=== PATIENT | female | born 1960 | race Hispanic/Latino ===

== ENCOUNTER 2017-12-09 07:14 | Emergency (ER) | payer OTHER ==
[2017-12-09 07:18] VITALS: O2SAT 97
--- NOTE | 2017-12-09 08:15 | C.PDOC ---
History Of Present Illness 57 y/o female presents to ED for cough, cold and congestion for the past week. Also complains of pressure in her sinuses. Notes taking Mucinex and Afrin spray without relief. Denies fever or other complaints. Time Seen by Provider: 12/09/17 07:21 Chief Complaint (Nursing): Cough, Cold, Congestion History Per: Patient History/Exam Limitations: no limitations Location Of Pain: Throat, Sinus/es Associated Symptoms: Sore Throat, Cough, Sinus Drainage Recent travel outside of the [place]: No Past Medical History Reviewed: Historical Data, Nursing Documentation, Vital Signs Vital Signs: Last Vital Signs Temp 98.4 F 12/09/17 08:25 Pulse 78 12/09/17 08:25 Resp 18 12/09/17 08:25 BP 125/88 12/09/17 08:25 Pulse Ox 97 12/09/17 08:52 - Medical History PMH: No Chronic Diseases Surgical History: No Surg Hx Family History: States: Unknown Family Hx - Social History Hx Alcohol Use: No Hx Substance Use: No - Immunization History Hx Tetanus Toxoid Vaccination: No Hx Influenza Vaccination: No Hx Pneumococcal Vaccination: No Review Of Systems Except As Marked, All Systems Reviewed And Found Negative. Constitutional: Negative for: Fever, Chills ENT: Positive for: Nose Discharge, Nose Congestion Cardiovascular: Negative for: Chest Pain Respiratory: Positive for: Cough. Negative for: Shortness of Breath Physical Exam - Physical Exam Appears: Non-toxic, No Acute Distress Skin: Normal Color, Warm, Dry Head: Atraumatic, Normacephalic, Tenderness (tenderness to maxillary sinus area) Eye(s): bilateral: Normal Inspection Ear(s): Bilateral: Normal Nose: Normal Oral Mucosa: Moist Tongue: Normal Appearing Lips: Normal Appearing Throat: Normal, No Erythema, No Exudate Neck: Normal ROM, Supple Cardiovascular: Rhythm Regular, No Murmur Respiratory: Normal Breath Sounds, No Rales, No Rhonchi, No Wheezing Gastrointestinal/Abdominal: Normal Exam Extremity: Normal ROM Neurological/Psych: Oriented x3, Normal Speech ED Course And Treatment O2 Sat by Pulse Oximetry: 97 Pulse Ox Interpretation: Normal Progress Note: Lungs clear. in no distress. Discharged in stable condition Reassessment Condition: Unchanged Disposition Counseled Patient/Family Regarding: Diagnosis - Disposition Referrals: [facility] [Outside] [facility] [Outside] Disposition: HOME/ ROUTINE Disposition Time: 08:30 Condition: STABLE Prescriptions: Azithromycin [Zithromax Tri-Hi] 500 mg PO DAILY #3 tablet Instructions: Sinusitis in Adults, Upper Respiratory Infection (ED) Forms: [employer] ([place]i) - POA Present On Arrival: None - Clinical Impression Clinical Impression: Sinusitis, Bronchitis - PA / CARDIOLOGY TECHNOLOGIST / Resident Statement MD/DO has reviewed & agrees with the documentation as recorded. - Scribe Statement The provider has reviewed the documentation as recorded by the Scribe KP All medical record entries made by the Scribe were at my direction and personally dictated by me. I have reviewed the chart and agree that the record accurately reflects my personal performance of the history, physical exam, medical decision making, and the department course for this patient. I have also personally directed, reviewed, and agree with the discharge instructions and disposition.
[2017-12-09 08:29] VITALS: BP 125/88; PULSE 78; RESP 18; TEMP 98.4
== END 2017-12-09 08:25 | disposition home or self-care (01) ==
LOC: C.ER 07:14
DX: J32.9 Chronic sinusitis, unspecified (principal); J40 Bronchitis, not specified as acute or chronic

== ENCOUNTER 2017-12-10 09:04 | Emergency (ER) | payer OTHER ==
[2017-12-10 09:09] VITALS: BMI 27.4
[2017-12-10 09:11] VITALS: TEMP 98.6
[2017-12-10 10:01] VITALS: BP 115/73; PULSE 79; RESP 18; O2SAT 95
--- NOTE | 2017-12-10 10:08 | C.PDOC ---
History Of Present Illness 57 year old female presents to the ED complaining of facial pain ongoing for the past week. Associated symptoms include dry cough. She denies any fever, chills, rhinorrhea, sore throat or any other symptoms. She denies any sick contacts or recent travel. She states she was seen in the ED yesterday and was given the first dose of antibiotics but she lost the prescription to continue the treatment. Time Seen by Provider: 12/10/17 09:23 Chief Complaint (Nursing): Cough, Cold, Congestion History Per: Patient History/Exam Limitations: no limitations Onset/Duration Of Symptoms: Days Current Symptoms Are (Timing): Still Present Location Of Pain: Sinus/es Sick Contacts (Context): None Associated Symptoms: Cough. denies: Fever, Chills, Sore Throat, Sinus Drainage , Nasal Congestion Recent travel outside of the [place]: No Past Medical History Reviewed: Historical Data, Nursing Documentation, Vital Signs Vital Signs: Last Vital Signs Temp 98.6 F 12/10/17 09:09 Pulse 79 12/10/17 10:00 Resp 18 12/10/17 10:00 BP 115/73 12/10/17 10:00 Pulse Ox 95 12/10/17 10:16 - Medical History PMH: No Chronic Diseases Surgical History: No Surg Hx Family History: States: No Known Family Hx - Social History Hx Alcohol Use: No Hx Substance Use: No - Immunization History Hx Tetanus Toxoid Vaccination: No Hx Influenza Vaccination: No Hx Pneumococcal Vaccination: No Review Of Systems Except As Marked, All Systems Reviewed And Found Negative. Constitutional: Negative for: Fever, Chills ENT: Positive for: Other (Facial pain ). Negative for: Nose Discharge, Throat Pain Physical Exam - Physical Exam Appears: Non-toxic, No Acute Distress Skin: Warm, Dry Head: Tenderness (Tenderness to B/L maxillary sinuses ) Eye(s): bilateral: Normal Inspection Ear(s): Bilateral: Normal Nose: Normal Oral Mucosa: Moist Tongue: Normal Appearing Gingiva: Normal Appearing Throat: Normal, No Erythema, No Exudate, No Drooling Neck: Supple Chest: Symmetrical Cardiovascular: Rhythm Regular Respiratory: Normal Breath Sounds, No Rales, No Rhonchi, No Wheezing Extremity: Bilateral: Atraumatic, Normal Color And Temperature, Normal ROM Neurological/Psych: Oriented x3, Normal Speech Gait: Steady ED Course And Treatment O2 Sat by Pulse Oximetry: 95 (RA) Pulse Ox Interpretation: Normal Medical Decision Making Medical Decision Making: Impression: Patient given Rx for Zithromax and Zyrtec-D Tablet. Patient instructed to follow up in clinic in 2-3 days. Patient advised to return if symptoms persist or worsen. Disposition - Disposition Referrals: [facility] [Outside] [facility] [Outside] Disposition: HOME/ ROUTINE Disposition Time: 09:30 Condition: GOOD Additional Instructions: CINDI MOSS, thank you for letting us take care of you today. Your provider was Jaron Leroy DO and you were treated for COUGH/CONGESTION. The emergency medical care you received today was directed at your acute symptoms. If you were prescribed any medication, please fill it and take as directed. It may take several days for your symptoms to resolve. Return to the Emergency Department if your symptoms worsen, do not improve, or if you have any other problems. Please contact your doctor or call one of the physicians/clinics you have been referred to that are listed on the Patient Visit Information form that is included in your discharge packet. Bring any paperwork you were given at discharge with you along with any medications you are taking to your follow up visit. Our treatment cannot replace ongoing medical care by a primary care provider outside of the emergency department. Thank you for allowing the [facility] team to be part of your care today. Follow up with the clinic this week for re-evaluation and further management. Prescriptions: Azithromycin [Zithromax] 250 mg PO DAILY #4 tab Cetirizine HCl/Pseudoephedrine [Zyrtec-D Tablet] 1 each PO BID #10 [id number] Instructions: Sinusitis, Adult (DC) Forms: [employer] (Faroese) - Clinical Impression Clinical Impression: Sinusitis - Scribe Statement The provider has reviewed the documentation as recorded by the Scribe Rhiannon Luis All medical record entries made by the Scribe were at my direction and personally dictated by me. I have reviewed the chart and agree that the record accurately reflects my personal performance of the history, physical exam, medical decision making, and the department course for this patient. I have also personally directed, reviewed, and agree with the discharge instructions and disposition.
== END 2017-12-10 10:02 | disposition home or self-care (01) ==
LOC: C.ER 09:04
DX: J32.9 Chronic sinusitis, unspecified (principal)